=== PATIENT | male | born 1980 | race Hispanic/Latino ===

== ENCOUNTER 2017-04-01 00:38 | Emergency (ER) | payer MEDICAID ==
[~2017-04-01] VITALS: Ht 188 cm; Wt 102.1 kg
[2017-04-01] MEDS ORDERED: TRAMADOL HCL50 MG PO (02:28)
== END 2017-04-01 02:50 | disposition home or self-care (01) ==
LOC: ED 00:38
DX: S16.1XXA Strain of muscle, fascia and tendon at neck level, initial encounter (principal); S30.1XXA Contusion of abdominal wall, initial encounter; S00.03XA Contusion of scalp, initial encounter; V53.5XXA Driver of pick-up truck or van injured in collision with car, pick-up truck or van in traffic accident, initial encounter
CPT/HCPCS: 70450; 71260; 72125; 74177; 80053; 82150; 82550; 85025; 86850; 86900; 86901; 96374; 96375; 99284; G0480; J1170; J2405; J7030; Q9967